=== PATIENT | male | born 2000 | race Caucasian/White ===

== ENCOUNTER 2019-11-19 22:42 | Inpatient (IN) ==
[2019-11-19] MEDS ORDERED: SODIUM CHLORIDE 0.9% 1000ML 1,000 ML IV SCH (23:00)
--- NOTE | 2019-11-19 23:15 | Emergency Department Note ---
Impression & Plan Acute upper gastrointestinal bleeding, Chest pain, Anemia, Syncope ED Provider Note NAME: MINERVA JOSUE AGE: 19 SEX: M : 2000 ARRIVES VIA: Walk-In INFORMANT: Patient, ED PROVIDER(S): Beto Brown DO CHIEF COMPLAINT: Chest pain HPI: The patient is a 19-year-old male who presented to the emergency department for an evaluation of chest pain. The patient describes epigastric and left- sided chest pain. He also has been experiencing chest pain for approximately the last few weeks. Chest pain is intermittent. It is not always worsened with exertion. The patient was at work this evening when he was going to have a [employer] movement. When he went to find more toilet paper he had a syncopal episode. Initially he presented to [facility] and was waiting for further testing but he was scheduled for a CT of the chest and left that facility and came to our facility. The patient is also been noticing black stool. The patient does have a history of upper GI bleeding in the past. He has been using NSAIDs recently. He also started taking iron recently. He denies having any abdominal pain at this time. He has had no diarrhea. Patient denies having any back pain. He does not complain of any specific difficulty breathing. The patient states his symptoms were moderate to severe earlier however now they s eem to be improved. A friend did come to the emergency department with the patient states that he was very pale and diaphoretic whenever she went to pick him up. Those symptoms have improved as well. ROS: See above HPI for pertinent positives & negatives. A total of 10 systems reviewed and were otherwise negative. PAST MEDICAL HISTORY: See Below PAST SURGICAL HISTORY: See Below FAMILY HISTORY: See Below SOCIAL HISTORY: See Below HOME MEDICATIONS: See Below ALLERGIES: See Below VITALS: See Below PHYSICAL EXAMINATION: GENERAL: Patient is awake alert in no acute distress patient is resting comfortably and showing no signs of anxiety EYES: The conjunctivae are clear. The pupils are round and reactive. EARS, NOSE, MOUTH AND THROAT: The nose is without any evidence of any deformity. Mucous membranes are moist. Tongue is midline. NECK: The neck is nontender and supple. RESPIRATORY: Normal respiratory effort is noted there is no evidence of wheezing rhonchi or rales CARDIOVASCULAR: Regular rate and rhythm noted there no murmurs rubs or gallops normal S1 normal S2. GASTROINTESTINAL: The abdomen is soft and nondistended. There is no tenderness guarding or rigidity. Rectal exam revealed black stool which was strongly heme positive. BACK: No midline tenderness or or step-off noted range of motion in flexion extension as well as rotation no signs of muscle spasm noted MUSCULOSKELETAL/EXTREMITIES: There is no evidence of gross deformity full range of motion is noted in the hips and shoulders. SKIN: There is no obvious evidence of any rash. There are no petechiae, pallor or cyanosis noted. NEUROLOGIC: Patient is awake alert and oriented x3 strength is symmetric patellar reflexes are 2+ bilaterally MEDICAL DECISION MAKING: The patient is a 19-year-old male who presented to the emergency department for an evaluation of chest pain and syncope. The patient has a history of peptic ulcer disease from NSAID use in the past. He presented to the emergency department also complaining of dark stool. Rectal exam revealed black stool which was strongly heme positive. He was treated with proton pump inhibitors and H2 blockers in the emergency department. He was also treated with IV fluids. I discussed the patient's laboratory and radiographic studies with him. He was seen at an outside facility and apparently was waiting for a CT the chest for possible pulmonary venous thromboembolic disease. I do not feel that this is the cause of the patient's symptoms at this time. I do not feel CT angiography of the chest would be warranted. Furthermore anticoagulation would be contraindicated at this time because the patient's upper GI bleeding. The Health systemist was notified about the patient. I feel the patient may require further inpatient management given his symptoms and anemia. Triage Nursing notes reviewed. Prior medical records reviewed Vital Signs: reviewed and remarkable for no significant abnormalities Differential diagnosis: Vasovagal event, dehydration, infection, hypoglycemia, electrolyte abnormalities, cardiac sources, intracerebral event, pulmonary embolism, seizu re, toxicologic, neurologic, as well as other pathologies. ER treatment provided: See below Diagnostics interpreted by me: ECG: EKG was obtained in the emergency department. My interpretation is normal sinus rhythm at 75 bpm. There is no ectopy. There is no acute ST segment abnormalities noted. There is no previous tracing for comparison. Cardiac Monitoring: An order was placed for continuous cardiac monitoring. The monitor shows a rate of 88 with sinus rhythm. Laboratory studies: As stated above and show below. Imaging studies: See below Consultation(s): 0030: [facility] hospitalist group was notified about the patient. ED COURSE: Procedures: none PDMP:reviewed and no issues Critical Care: None Past Med/Surg History Medical History Lumbar disc disease PUD (peptic ulcer disease) Social History Smoking Status: Current every day smoker Tobacco Type: Cigarettes, E-cigarettes / Vaping and Smokeless Tobacco (Dip or Chew) Hx Alcohol Use: Yes Alcohol type: beer Alcohol Intake Frequency: Monthly or Less Preferred Language: Latvian Feels Safe at Home: Yes Allergies Allergies Allergy/AdvReac Type Severity Reaction Status Date / Time No Known Allergies Allergy Unverified 11/19/19 23:25 Home Meds Home Medications Medication Instructions Recorded Confirmed No Known Home Medications 11/19/19 11/19/19 Results & Data (ED) Vital Signs Vital Signs - 24 hr 11/19/19 22:45 11/20/19 00:46 Temperature 36.7 C Temperature Source Oral Pulse Rate 95 H Pulse Rate [Finger] 66 Respiratory Rate 16 Blood Pressure 107/73 Blood Pressure [Left Arm] 106/60 Blood Pressure Mean 84 Blood Pressure Mean [Left Arm] 75 Pulse Oximetry 100 100 Oxygen Delivery Method Room Air Room Air Sepsis Recent Fever Within 48 Hours No Sepsis New/Unexplained Change in Mental Status No Sepsis Action Taken by Nursing No Action Required Home Medications Current Medication List: was personally reviewed by me Laboratory Data Attestation: I reviewed the patient's lab results. Result diagrams: 11/19/19 23:04 11/19/19 23:04 Lab Results 11/19/19 11/19/19 11/19/19 Range/Units 23:04 23:04 23:04 WBC 7.27 (4.8-10.8) K/uL RBC 4.18 L (4.7-6.1) M/uL Hgb 9.5 L (14.0-18.0) g/dL Hct 30.1 L (42-52) % MCV 72.0 L (80-100) fL MCH 22.7 L (25-34) pg MCHC 31.6 L (32-36) g/dL RDW Std Deviation 46.6 H (36.4-46.3) fL RDW Coeff of Ирина 17.7 H (11.5-14.5) % Plt Count 283 (130-400) K/uL MPV 10.6 H (7.4-10.4) fL Immature Gran % (Auto) 0.1 % Neut % (Auto) 44.5 % Lymph % (Auto) 39.3 % Carver % (Auto) 11.1 % Eos % (Auto) 4.0 % Baso % (Auto) 1.0 % Neut # (Auto) 3.23 (1.4-6.5) K/uL Lymph # (Auto) 2.86 (1.2-3.4) K/uL Carver # (Auto) 0.81 H (0.11-0.59) K/uL Eos # (Auto) 0.29 (0-0.5) K/uL Baso # (Auto) 0.07 (0-0.2) K/uL Immature Gran # (Auto) 0.01 (0.00-0.02) K/uL PT 12.4 H (9.0-12.0) Seconds INR 1.2 H (0.9-1.1) APTT 23.2 (21.0-31.0) Seconds PTT Ratio 0.8 D-Dimer 510 H* (0-500) ug/L FEU Sodium 139 (136-145) mmol/L Potassium 4.0 (3.5-5.1) mmol/L Chloride 109 H (98-107) mmol/L Carbon Dioxide 27 (21-32) mmol/L Anion Gap 3.0 (3-11) BUN 23 H (7-18) mg/dl Creatinine 0.84 (0.6-1.4) mg/dl Est Cr Clr Drug Dosing 123.8 ml/min Est GFR ( Amer) 145.1 Est GFR (Non-Af Amer) 125.2 BUN/Creatinine Ratio 27.1 H (10-20) Glucose 74 (70-99) mg/dl Calcium 8.9 (8.5-10.1) mg/dl Total Bilirubin 0.3 (0.2-1) mg/dl AST 9 L (15-37) U/L ALT 12 (12-78) U/L Alkaline Phosphatase 72 (45-117) U/L Troponin I < 0.015 (0-0.045) ng/ml Total Protein 6.9 (6.4-8.2) gm/dl Albumin 3.9 (3.4-5.0) gm/dl Globulin 3.0 (2.5-4.0) gm/dl Albumin/Globulin Ratio 1.3 (0.9-2) Lipase 59 L (73-393) U/L Blood Type Antibody Screen 11/19/19 Range/Units 23:34 WBC (4.8-10.8) K/uL RBC (4.7-6.1) M/uL Hgb (14.0-18.0) g/dL Hct (42-52) % MCV (80-100) fL MCH (25-34) pg MCHC (32-36) g/dL RDW Std Deviation (36.4-46.3) fL RDW Coeff of Ирина (11.5-14.5) % Plt Count (130-400) K/uL MPV (7.4-10.4) fL Immature Gran % (Auto) % Neut % (Auto) % Lymph % (Auto) % Carver % (Auto) % Eos % (Auto) % Baso % (Auto) % Neut # (Auto) (1.4-6.5) K/uL Lymph # (Auto) (1.2-3.4) K/uL Carver # (Auto) (0.11-0.59) K/uL Eos # (Auto) (0-0.5) K/uL Baso # (Auto) (0-0.2) K/uL Immature Gran # (Auto) (0.00-0.02) K/uL PT (9.0-12.0) Seconds INR (0.9-1.1) APTT (21.0-31.0) Seconds PTT Ratio D-Dimer (0-500) ug/L FEU Sodium (136-145) mmol/L Potassium (3.5-5.1) mmol/L Chloride (98-107) mmol/L Carbon Dioxide (21-32) mmol/L Anion Gap (3-11) BUN (7-18) mg/dl Creatinine (0.6-1.4) mg/dl Est Cr Clr Drug Dosing ml/min Est GFR ( Amer) Est GFR (Non-Af Amer) BUN/Creatinine Ratio (10-20) Glucose (70-99) mg/dl Calcium (8.5-10.1) mg/dl Total Bilirubin (0.2-1) mg/dl AST (15-37) U/L ALT (12-78) U/L Alkaline Phosphatase (45-117) U/L Troponin I (0-0.045) ng/ml Total Protein (6.4-8.2) gm/dl Albumin (3.4-5.0) gm/dl Globulin (2.5-4.0) gm/dl Albumin/Globulin Ratio (0.9-2) Lipase (73-393) U/L Blood Type O Positive Antibody Screen NEGATIVE Administered Medications Discontinued Medications Sodium Chloride (Nss 1000ml) 1,000 mls @ 999 mls/hr IV .Q1H1M ESPINOZA Stop: 11/20/19 00:00 Last Infusion: 11/20/19 00:17 Dose: 0 mls/hr Documented by: [id number] Admin: 11/19/19 23:11 Dose: 999 mls/hr Documented by: [id number] Pantoprazole Sodium 40 mg/ (Syringe) 10 mls @ 5 mls/min IV NOW ONE Stop: 11/19/19 23:21 Last Admin: 11/19/19 23:39 Dose: 5 mls/min Documented by: [id number] Famotidine (Pepcid 20mg Iv Push) 20 mg in 5 mls @ 2.5 mls/min IV NOW STA Stop: 11/19/19 23:21 Last Admin: 11/19/19 23:39 Dose: 2.5 mls/min Documented by: [id number] Imaging Data Attestation: I personally reviewed and interpreted this imaging study as follows: My Impression: Chest x-ray was obtained in the emergency department. My interpretation is no free air no acute infiltrate heart size is normal. No acute disease. Prescription Drug Monitoring [place] Drug Monitoring Program reviewed and no issues identified Blood Pressure Blood Pressure Findings: Normal blood pressure Discharge Plan Visit Data Chief Complaint: Chest Pain Stated Complaint: CHEST PAIN, R/O PE ED Provider: Beto Brown Discharge Problem: Acute upper gastrointestinal bleeding, Chest pain, Anemia, Syncope Patient Disposition: Being Evaluated by Hospitalist Condition: Good Forms Stand Alone Forms: My [facility] MyDocTime Prescriptions Prescriptions: No Action No Known Home Medications RF: 0 Referrals Referrals: PCP,NO [Primary Care Provider] - Discharge Problem: Chest pain Qualifiers: Chest pain type: unspecified Qualified Code(s): R07.9 - Chest pain, unspecified Anemia Qualifiers: Anemia type: unspecified type Qualified Code(s): D64.9 - Anemia, unspecified Syncope Qualifiers: Syncope type: unspecified Qualified Code(s): R55 - Syncope and collapse
[2019-11-19 23:17] LABS: Basophils # (auto) 0.07 K/uL (0-0.2); Eosinophils # (auto) 0.29 K/uL (0-0.5); Hematocrit (blood only) 30.1 % (42-52); Hemoglobin 9.5 g/dL (14.0-18.0); Immature Granulocytes # (auto) 0.01 K/uL (0.00-0.02); Immature Granulocytes % (auto) 0.1 %; Lymphocytes # (auto) 2.86 K/uL (1.2-3.4); Lymphocytes % (auto) 39.3 %; Mean Corpuscular Hemoglobin 22.7 pg (25-34); Mean Corpuscular Hgb Conc 31.6 g/dL (32-36); Mean Platelet Volume 10.6 fL (7.4-10.4); Monocytes # (auto) 0.81 K/uL (0.11-0.59); Monocytes % (auto) 11.1 %; Neutrophils # (auto) 3.23 K/uL (1.4-6.5); Neutrophils % (auto) 44.5 %; Platelet Count 283 K/uL (130-400); RDW Coefficient of Variation 17.7 % (11.5-14.5); RDW Standard Deviation 46.6 fL (36.4-46.3); Red Blood Count 4.18 M/uL (4.7-6.1); White Blood Count 7.27 K/uL (4.8-10.8)
[2019-11-19] MEDS ORDERED: FAMOTIDINE 20MG IV PUSH 20 MG/5 ML SYR IV STA (23:20)
[2019-11-19] MEDS ORDERED: PANTOprazole 40 MG in SYRINGE 0 ML IV ONE (23:20)
[2019-11-19 23:33] LABS: INR 1.2 (0.9-1.1); Partial Thromboplastin Ratio 0.8; Partial Thromboplastin Time 23.2 Seconds (21.0-31.0); Prothrombin Time 12.4 Seconds (9.0-12.0)
[2019-11-19 23:35] LABS: Alanine Aminotransferase 12 U/L (12-78); Albumin Level 3.9 gm/dl (3.4-5.0); Aspartate Aminotransferase 9 U/L (15-37); BUN Creatinine Ratio 27.1 (10-20); Blood Urea Nitrogen 23 mg/dl (7-18); Calcium 8.9 mg/dl (8.5-10.1); Carbon Dioxide 27 mmol/L (21-32); Chloride 109 mmol/L (98-107); Creatinine Clr Calc Pharmacy 123.8 ml/min; Est GFR (African American) 145.1; Est GFR (Non-African American) 125.2; Glucose 74 mg/dl (70-99); Lipase 59 U/L (73-393); Sodium 139 mmol/L (136-145)
[2019-11-19 23:39] LABS: Albumin Globulin Ratio 1.3 (0.9-2); Alkaline Phosphatase 72 U/L (45-117); Bilirubin,Total 0.3 mg/dl (0.2-1); Total Protein 6.9 gm/dl (6.4-8.2); Troponin I < 0.015 ng/ml (0-0.045)
[2019-11-19 23:41] LABS: D Dimer 510 ug/L FEU (0-500)
--- NOTE | 2019-11-20 01:16 | History & Physical Report ---
Date of Service November 20, 2019 Assessment & Plan (1) Acute upper gastrointestinal bleeding: Tarik Mckeon is a 19-year-old male with a past history of excess NSAID use who presents after an episode of presyncope/syncope and melena likely due to NSAID induced upper GI bleed Melena 2/2 upper GI bleed History of high NSAID use Melena x3 days Acute anemia as below GI consulted for EGD N.p.o., Protonix drip followed by IV bolus protocol Chest x-ray clear, no signs of infradiaphragmatic free air History of gastric and esophageal ulcers on prior EGD 1 year ago Acute blood loss anemia Reported baseline hemoglobin approximately 13 acutely decreased to 9.5 CBC every 6 hours Ulcer management as above Transfusion threshold of 7.0 g/dL Currently asymptomatic while in bed Syncope Patient remembers episode, felt extremely fatigued and a darkening of vision after running EKG normal sinus rhythm on admission, trop negative History not consistent with arrhythmogenic syncope Admit to med/surge with telemetry Suspect due to acute blood loss anemia D-dimer D-dimer elevated, patient with a family history of PE Patient without tachycardia or desaturation, no shortness of breath at rest Low suspicion for PE, but given d-dimer check will order bilateral Doppler lower extremity No leg asymmetry/swelling on admitting exam FEN GI: NSS +20 K@100 cc/h while n.p.o. Diet: NPO Dispo: Med Tele Code Status: Full Code (2) Chest pain: (3) Anemia: (4) Syncope: History of Present Illness . Chief Complaint: Melena, syncope Primary Care Provider: NO PCP Tarik Mckeon is a 19-year-old male with a past medical history of excessive NSAID use 1 year ago who presents with 2 to 3 days of stomach discomfort, melena, and an episode of presyncope/syncope. Edilia reports that about 3 days ago he started taking Aleve 3 tablets at a time daily for a headache. Headache improved with Aleve. 2 to 3 days ago she developed mild stomach pain and started having 6-7 sticky/tar-like black bowel movements daily. He has a decreased appetite. Denies nausea/hematemesis/emesis. Denies bright red blood per rectum. He reports that he "destroyed "his stomach 1 year ago when he had been taking 7 Aleve tablets 3 times a day for hip and muscle discomfort and had developed similar symptoms. He was found to have gastric and esophageal ulcers following this episode on his EGD. He had not used NSAIDs in the last year until 3 days ago. He reports that today while having a bowel movement he ran out of toilet paper and went to run across the house and back, and suddenly felt lightheaded and like things were "going black "and he had to sit/fall down to the floor. He reports that while he feels like things went black he did not lose consciousness and remembers the episode. He reports he felt extremely fatigued and had to wait on the floor until 3 PM before he was able to go to [facility]. He reports that they told him that he might of had a PE, but that he was waiting for over 3 hours and got frustrated so he left and went to the right aid, bought iron and a fish oil tablet which he took, and then came to [facility] for further care. He denies chest pain, chest pressure, palpitations, syncope, presyncope prior to this. He endorses shortness of breath with ambulation for the last 2 to 3 days, none prior. Denies fever, chills, cough, and cold-like symptoms. He reports he has intermittent chronic left hip and calf discomfort which improves with Aleve, but which does not limit his ability to ambulate and is not worse bearing weight. Medical history: Reviewed Medications: Reviewed. No home medications Surgical history: Reviewed Family history: Father had a PE at age 67 and an [place]. Denies other family history. Allergies: None CODE STATUS: Full code Allergies Allergy/AdvReac Type Severity Reaction Status Date / Time No Known Allergies Allergy Unverified 11/19/19 23:25 Home Medications Home Medications Medication Instructions Recorded Confirmed Type No Known Home Medications 11/19/19 11/19/19 History Past Med/Surg History Medical History Lumbar disc disease PUD (peptic ulcer disease) Family History Father Myocardial infarction Pulmonary embolism Social History Smoking Status: Current every day smoker Tobacco Type: Cigarettes, E-cigarettes / Vaping and Smokeless Tobacco (Dip or Chew) Second Hand Exposure: No; Do You Dip or Chew Tobacco: No; Tobacco Cessation Education Requested by Patient: No Hx Alcohol Use: No Hx Substance Use: No Preferred Language: Burundian Communication Ability: Effective Beliefs That Will Affect Care: None Current Living Situation: Alone Feels Safe at Home: Yes Safety Concerns: Feels Safe At This Time Review of Systems Review of Systems: Constitutional: Denies fever, chills Eyes: Denies double vision, vision change, eye pain ENT: Denies ear pain, sore throat, sinus pain Cardiovascular: Denies Chest pain, chest pressure, palpitations, extremity swelling Respiratory: See HPI Gastrointestinal: See HPI Genitourinary: Denies pain with urination Musculoskeletal: Denies weakness. Endorses chronic L hip tightness. Integumentary:Denies rash, lesions, bruising Neurological: Denies numbness, tingling, focal weakness. Headache as ntoed in HPI. Physical Exam Physical Exam: General: A&Ox3. NAD. Cooperative. HEENT: Atraumatic, normocephalic. Pupils equal and responsive to light and accommodation. No nystagmus. Tongue protrudes midline. No pallor. Mucous membranes moist. Pulm: CTAB A&P. -wheezes, -rales, -rhonchi. Symmetrical chest rise. No increase work of breathing. No respiratory distress. Cardiac: RRR, -mrg. Radial pulses intact and symmetrical. Abdominal: Tender to palpation at epigastrium and left upper quadrant. Soft. Bowel sounds present. Results & Data Results & Data ([facility]) Vital Signs (Past 12 Hours) Vital Signs Temp Pulse Pulse Resp BP BP Pulse Ox 11/20/19 00:46 66 106/60 100 11/19/19 22:45 36.7 C 95 H 16 107/73 100 Supervising Physician Co-Signing Physician Notes Attending addendum: I have physically seen this patient, have supervised the medical residents activities, and agree with the H&P unless as otherwise noted. Assessment and Plan: NSAID induced upper GI bleed/history of gastric and esophageal ulcers- NPO H&H every 6 hours Protonix bolus/drip per protocol Acute blood loss anemia- hemoglobin 9.5 upon admission. Vital signs stable. Elevated d-dimer- Family history of PE Order lower extremity venous Dopplers Patient would not be a good anticoagulation candidate with current bleeding. If Dopplers abnormal, would have to consider an IVC filter. Remaining orders and notations as noted. Resident Activity Tracking Resident Involvement: Resident Care Provided Care Provided: Adult Hospital Medicine (1) Anemia Anemia type: unspecified type Qualified Code(s): D64.9 - Anemia, unspecified (2) Syncope Syncope type: unspecified Qualified Code(s): R55 - Syncope and collapse (3) Chest pain Chest pain type: unspecified Qualified Code(s): R07.9 - Chest pain, unspecified
[2019-11-20] MEDS ORDERED: NICOTINE POLACRILEX 2 MG GUM MT PRN ×2 (01:30→15:27)
[2019-11-20 01:48] LABS: Amphetamines+Metham, Urine Neg (Neg); Barbiturates, Urine Neg (Neg); Benzodiazepine, Urine Neg (Neg); Cocaine, Urine Neg (Neg); MDMA (Ecstacy), Urine Neg (Neg); Methadone, Urine Neg (Neg); Opiate, Urine Neg (Neg); Phencyclidine, Urine Neg (Neg)
[2019-11-20] MEDS ORDERED: ACETAMINOPHEN 325 MG TAB PO PRN (02:23)
[2019-11-20] MEDS ORDERED: FAMOTIDINE 20 MG in SYRINGE 3 ML IV PRN (02:23)
[2019-11-20] MEDS ORDERED: PANTOPRAZOLE BOLUS/DRIP 1 EA IV STA (02:23)
[2019-11-20] MEDS ORDERED: PANTOprazole 80 MG in DEXTROSE 5% 100 ML IV ONE (02:30)
[2019-11-20] MEDS: NSS + 20MEQ KCL 20 MEQ/1,000 ML BAG IV SCH ×2 (03:02→12:53)
[2019-11-20] MEDS: PANTOprazole 40 MG in DEXTROSE 5% 100 ML IV SCH ×4 (04:12→18:20)
--- NOTE | 2019-11-20 06:29 | XRay Report ---
XR chest 1V portable CLINICAL HISTORY: Chest Pain pain COMPARISON STUDY: No previous studies for comparison. FINDINGS: The bones soft tissues and hemidiaphragms are normal. The cardiomediastinal silhouette is n ormal. The lungs are clear. The pulmonary vasculature is normal. IMPRESSION: Negative chest. ACT 112: Negative or not required by law. The above report was generated using voice recognition software. It may contain grammatical, syntax or spelling errors. Electronically signed by: Claus Rodriguez M.D. 11/20/2019 6:28 AM
--- NOTE | 2019-11-20 06:56 | Ultrasound Report ---
US venous doppler LE BI HISTORY: Pain. Edema. Elevated d-dimer COMPARISON STUDY: None. FINDINGS: There is normal compressibility, flow, and augmentation within the bilateral lower extremit y deep venous systems. IMPRESSION: No DVT within the right or left lower extremity. ACT 112: Negative or not required by law. The above report was generated using voice recognition software. It may contain grammatical, syntax or spelling errors. Electronically signed by: Claus Rodriguez M.D. 11/20/2019 6:55 AM
[2019-11-20 07:08] LABS: Basophils # (auto) 0.06 K/uL (0-0.2); Basophils % (auto) 1.2 %; Hematocrit (blood only) 25.3 % (42-52); Hemoglobin 7.8 g/dL (14.0-18.0); Lymphocytes # (auto) 1.95 K/uL (1.2-3.4); Lymphocytes % (auto) 38.6 %; Mean Corpuscular Hemoglobin 22.5 pg (25-34); Mean Corpuscular Hgb Conc 30.8 g/dL (32-36); Mean Corpuscular Volume 73.1 fL (80-100); Mean Platelet Volume 10.6 fL (7.4-10.4); Monocytes % (auto) 9.9 %; Neutrophils # (auto) 2.34 K/uL (1.4-6.5); Neutrophils % (auto) 46.3 %; Platelet Count 215 K/uL (130-400); RDW Coefficient of Variation 18.2 % (11.5-14.5); RDW Standard Deviation 48.4 fL (36.4-46.3); Red Blood Count 3.46 M/uL (4.7-6.1); White Blood Count 5.05 K/uL (4.8-10.8)
[2019-11-20 07:34] LABS: Microcytosis Present
[2019-11-20] MEDS: NICOTINE 14 MG/24 HR PATCH TD SCH (07:44)
[2019-11-20 08:02] LABS: BUN Creatinine Ratio 20.4 (10-20); Calcium 8.2 mg/dl (8.5-10.1); Creatinine Clr Calc Pharmacy 126.9 ml/min; Est GFR (African American) 147.2
--- NOTE | 2019-11-20 11:00 | Electrocardiogram Report ---
Test Reason : Blood Pressure : / mmHG Vent. Rate : 075 BPM Atrial Rate : 075 BPM P-R Int : 126 ms QRS Dur : 082 ms QT Int : 350 ms P-R-T Axes : -05 081 052 degrees QTc Int : 390 ms Normal sinus rhythm Normal ECG No previous ECGs available Confirmed by Ravindra Tavarez ([id number]) on 11/20/2019 11:00:17 AM Referred By: REFERRED SELF Confirmed By:Fred Tavarez
[2019-11-20] MEDS ORDERED: SODIUM CHLORIDE 0.9% 250 ML IV PRN ×2 (12:18→12:25)
--- NOTE | 2019-11-20 15:17 | Hospitalist Progress Note ---
Date of Service November 20, 2019 Assessment & Plan (1) Acute upper gastrointestinal bleeding: (1) Acute upper gastrointestinal bleeding: Tarik Mckeon is a 19-year-old male with a past history of excess NSAID use who presents after an episode of presyncope/syncope and melena likely due to NSAID induced upper GI bleed Melena 2/2 upper GI bleed History of high NSAID use Melena x3 days [employer] NPO, protonix GI planning for EGD today History of gastric and esophageal ulcers on prior EGD 1 year ago Acute blood loss anemia Reported baseline hemoglobin approximately 13 acutely decreased to 9.5 on admission with further decrease to 7.8 this AM 2 units PRBC on 11/19 Monitor H/H Syncope Patient remembers episode, felt extremely fatigued and a darkening of vision after running EKG normal sinus rhythm on admission, trop negative History not consistent with arrhythmogenic syncope Admit to med/surge with telemetry Suspect due to acute blood loss anemia (2) Elevated d-dimer: D-dimer elevated, patient with a family history of PE Patient without tachycardia or desaturation, no shortness of breath at rest Low suspicion for PE, b/l LE neg for DVT No leg asymmetry/swelling on exam (3) DVT prophylaxis: SCDs given above Admission and Anticipated Discharge Date Admission Date: November 20, 2019 Subjective Pt states no new concerns. He has not had a bowel movement since admission, but no ora bleeding noted. Pt denies fever, SOB, chest pain, abd pain, n/v/c/d, LE pain or swelling. States he did not need transfusion with GIB episode last year. Review of Systems Review of Systems: Pertinent positives and negatives reviewed in HPI--all others negative Physical Exam Constitutional: WD/WN, vitals as above Eyes: normal visual barboza by confrontation and + anicteric sclerae Neck: normal visual inspection and trachea midline Respiratory: normal respiratory effort, lungs clear to auscultation Cardiovascular: Rate/Rhythm: regular rate and regular rhythm Gastrointestinal (Abdomen): Inspection/Auscultation: abdomen not distended Percussion/Palpation: abdomen soft; abdomen nontender Musculoskeletal: Head/Neck/Chest: normocephalic and head atraumatic negative for edema, peripheral pulses intact Skin: no rashes, warm and dry Neurologic: awake; not confused Speech / Cognition: normal speech Psychiatric: A+Ox3, euthymic affect Results & Data Results & Data ([facility]) Vital Signs (Past 12 Hours) Vital Signs Temp Pulse Pulse Resp BP BP Pulse Ox 11/20/19 14:55 36.7 C 64 20 99/64 L 100 11/20/19 14:50 37.0 C 57 L 17 102/66 100 11/20/19 14:20 37.0 C 75 18 102/65 100 11/20/19 14:05 36.9 C 75 18 115/75 100 11/20/19 13:46 36.9 C 73 18 89/52 L 100 11/20/19 11:33 36.9 C 69 17 104/70 100 11/20/19 07:51 37.0 C 69 17 96/56 L 99 11/20/19 07:32 62 11/20/19 06:01 62 PG Care Time/CCT Total # of Minutes Spent Total Time Spent with Patient: Total time spent is greater than 50% in coordination of care (as documented) at patient's floor/unit and/or counseling patient: Coding Level of Care Code 16116 Subseq Hosp Care Lvl 3 Diagnoses Acute upper gastrointestinal bleeding K92.2 Elevated d-dimer R79.89 DVT prophylaxis Z29.9
--- NOTE | 2019-11-20 15:46 | Gastrointestinal Consultation ---
Date of Consultation November 20, 2019 Assessment & Plan (1) Melena: Consistent with UGI bleeding. He is on PPI currently. Plan EGD today. Procedure and risks explained which include but not limited to med reaction, bleeding, perforation, and aspiration. acute blood loss anemia--transfuse prn elevated D Dimer per hospitalist--no chest pain to induce PE. History of Present Illness Reason for Consultation: GI bleeding Attending Physician: Trang Gutierrez DO History of Present Illness CC black stools HPI Pt states about one year ago he was taking up to 7 Aleve daily and had GI bleeding diagnosed with EGD at [facility] showing esophageal and gastric ulcers. He took Aleve again up to 3 daily along with 2-3 drinks of ETOH. He notes over 2-3 days to have up to 7 black stools daily. There was mention of epi pain in the chart but he denies pain when I question him. No stools since admit. Admitting Hgb 9.5 went down to 7.8 this am. PT/PTT ok CMP ok. CXR neg and leg dopple neg for DVT. Today he had presycope. Rectal in ER reported as black and strongly heme postive. Allergies Allergy/AdvReac Type Severity Reaction Status Date / Time No Known Allergies Allergy Unverified 11/19/19 23:25 Home Medications Home Medications Medication Instructions Recorded Confirmed Type No Known Home Medications 11/19/19 11/19/19 History Patient History Medical History Lumbar disc disease PUD (peptic ulcer disease) Family History Father Myocardial infarction Pulmonary embolism Social History Smoking Status: Current every day smoker Tobacco Type: Cigarettes, E-cigarettes / Vaping and Smokeless Tobacco (Dip or Chew) Second Hand Exposure: No; Do You Dip or Chew Tobacco: No; Tobacco Cessation Education Requested by Patient: No Hx Alcohol Use: No Hx Substance Use: No Preferred Language: Nepali Communication Ability: Effective Beliefs That Will Affect Care: None Current Living Situation: Alone Feels Safe at Home: Yes Safety Concerns: Feels Safe At This Time Review of Systems Review of Systems: All systems reviewed & are unremarkable except as noted in HPI & below Physical Exam Constitutional: WD/WN, vitals as above Eyes: PERRL, conjunctivae normal, anicteric sclerae ENMT: external ear and nose normal, oropharynx normal Neck: normal visual inspection and trachea midline Respiratory: normal respiratory effort, lungs clear to auscultation Cardiovascular: RRR, no murmur, no edema Gastrointestinal (Abdomen): normal bowel sounds, soft, nontender, no hepatosplenomegaly Skin: normal turgor Neurologic: PERRL, EOMI, accommodation nl, no face palsy, no dysarthria Psychiatric: A+Ox3, euthymic affect Results & Data ([facility]) Vital Signs (Past 12 Hours) Vital Signs Temp Pulse Pulse Resp BP BP Pulse Ox 11/20/19 14:55 36.7 C 64 20 99/64 L 100 11/20/19 14:50 37.0 C 57 L 17 102/66 100 11/20/19 14:20 37.0 C 75 18 102/65 100 11/20/19 14:05 36.9 C 75 18 115/75 100 11/20/19 13:46 36.9 C 73 18 89/52 L 100 11/20/19 11:33 36.9 C 69 17 104/70 100 11/20/19 07:51 37.0 C 69 17 96/56 L 99 11/20/19 07:32 62 11/20/19 06:01 62
[2019-11-20] MEDS ORDERED: LIDOCAINE HCL 2% 2 ML VIAL/AMP(20MG/ML) INFIL ONE (17:28)
[2019-11-20] MEDS ORDERED: PROPOFOL IV EMULSION 10 MG/ML 20 ML VIAL IV ONE (17:28)
[2019-11-20] MEDS ORDERED: MIDAZOLAM HCL 1 MG/ML 2ML VIAL ONE (17:28)
--- NOTE | 2019-11-20 18:04 | Anesthesiology Consultation ---
Date of Service November 20, 2019 Assessment & Plan Chart Review Chart Review: Acceptable Risk for Surgery Consults Requested none History Surgery Operation Date: 11/20/19 16:00 Proposed Procedures p EGD Dr. Peterson Winkler Height/Weight Height: 6 ft 2 in Weight: 62.2 kg Allergies Allergy/AdvReac Type Severity Reaction Status Date / Time No Known Allergies Allergy Unverified 11/19/19 23:25 Medications Home Medications Medication Instructions Recorded Confirmed Last Taken No Known Home Medications 11/19/19 11/19/19 Unknown Active Medications Generic Name Dose Route Start Last Admin Trade Name Freq PRN Reason Stop Dose Admin Potassium Chloride/Sodium Chloride 20 meq in 1,000 mls @ 100 mls/hr 11/20/19 02:23 11/20/19 12:53 Normal Saline W/20 Meq Kcl IV 12/20/19 02:22 100 mls/hr .Q10H ESPINOZA Administration Pantoprazole Sodium 40 mg/ 100 mls @ 20 mls/hr 11/20/19 02:45 11/20/19 13:34 Dextrose IV 12/20/19 02:44 8 mg/hr Q5H ESPINOZA 20 mls/hr Administration 8 MG/HR Nicotine 14 mg 11/20/19 09:00 11/20/19 07:44 Nicoderm Cq TD 12/20/19 08:59 14 mg QAM ESPINOZA Administration NPO Date Last Intake of Fluids: 11/19/19 Time Last Intake of Fluids: 16:00 Date Last Intake of Solids: 11/19/19 Time Last Intake of Solids: 16:00 Past Medical History Medical History Lumbar disc disease PUD (peptic ulcer disease) Past Family History Family History Father Myocardial infarction Pulmonary embolism Social History Smoking Status: Current every day smoker tobacco type: cigarettes and e-cigarettes Do You Dip or Chew Tobacco: No Hx Alcohol Use: No Alcohol type: beer Hx Substance Use: No substance use type: does not use Physical Exam Vital Signs Last Vital Signs Temp 36.7 C 11/20/19 17:06 Pulse 68 11/20/19 17:06 Resp 18 11/20/19 17:06 BP 107/70 08/09/20 17:06 Pulse Ox 98 11/20/19 17:06 Testing Laboratory Results 11/20/19 06:51 11/20/19 06:51 PT 12.4 Seconds (9.0-12.0) H 11/19/19 23:04 INR 1.2 (0.9-1.1) H 11/19/19 23:04 APTT 23.2 Seconds (21.0-31.0) 11/19/19 23:04 Blood Type O Positive 11/19/19 23:34 Antibody Screen NEGATIVE 11/19/19 23:34
--- NOTE | 2019-11-20 18:05 | GI REPORT ---
Patient Name: Tarik Mckeon Procedure Date: 11/20/2019 4:20 PM Date of : 2000 Admit Type: Inpatient Age: 19 Gender: Male Attending MD: James Winkler MD Procedure: Upper GI endoscopy Providers: James Winkler MD Referring MD: Trang Gutierrez Indications: Acute post hemorrhagic anemia, Melena Medicines: Monitored Anesthesia Care Complications: No immediate complications. Estimated Blood Loss: Estimated blood loss: none. Procedure: Pre-Anesthesia Assessment: - The risks and benefits of the procedure and the sedation options and risks were discussed with the patient. All questions were answered and informed consent was obtained. - Patient identification and proposed procedure were verified prior to the procedure by the physician, the nurse and the anesthesiologist. The procedure was verified in the procedure room. After obtaining informed consent, the endoscope was passed under direct vision. Throughout the procedure, the patient's blood pressure, pulse, and oxygen saturations were monitored continuously. The Scope was introduced through the mouth, and advanced to the second part of duodenum. The upper GI endoscopy was accomplished without difficulty. The patient tolerated the procedure well. Procedure and risks explained to patient which include but not limited to medication reaction, bleeding, perforation, aspiration , and missed lesions. Judicious gas insufflation was used and gas removal done on the way out. The lumen was always visualized when advancing the scope. Prep was good. Washes and suctioning used as needed to get good visualization of the mucosa. Retroflexion to look at the fundus and cardia of the stomach and GE junction was done. Findings: o The Z-line was irregular and was found 40 cm from the incisors. A 2 cm hiatal hernia was present. Many non-bleeding cratered gastric ulcers the largest with a flat pigmented spot (Vin Class IIc) were found in the gastric antrum. The largest lesion was 30 mm in largest dimension. Biopsies of normal antrum were taken with a cold forceps for Helicobacter pylori testing. Estimated blood loss was minimal. The examined duodenum was normal. The exam was otherwise without abnormality. Impression: - Z-line irregular, 40 cm from the incisors. - 2 cm hiatal hernia. - Non-bleeding gastric ulcers with a flat pigmented spot (Vin Class IIc). Biopsied. - Normal examined duodenum. - The examination was otherwise normal. Recommendation: - [facility]. James Winkler M.D. James Winkler MD 11/20/2019 6:05:12 PM This report has been signed electronically. Note Initiated On: 11/20/2019 4:20 PM Number of Addenda: 0 I attest to the content of the Intraoperative Record and orders documented therein, exceptions below {[id number]}
--- NOTE | 2019-11-20 18:20 | Anesthesiology Progress Note ---
Date of Service November 20, 2019 Anesthesia Post Procedure Vital Signs Vital Signs: Temp Pulse Pulse Resp BP BP Pulse Ox 11/20/19 17:06 36.7 C 68 18 107/70 98 11/20/19 16:52 36.8 C 64 18 105/69 99 11/20/19 15:50 36.8 C 64 16 108/68 100 11/20/19 14:55 36.7 C 64 20 99/64 L 100 11/20/19 14:50 37.0 C 57 L 17 102/66 100 11/20/19 14:20 37.0 C 75 18 102/65 100 11/20/19 14:05 36.9 C 75 18 115/75 100 11/20/19 13:46 36.9 C 73 18 89/52 L 100 11/20/19 11:33 36.9 C 69 17 104/70 100 11/20/19 07:51 37.0 C 69 17 96/56 L 99 11/20/19 07:32 62 11/20/19 06:01 62 11/20/19 02:48 37.1 C 65 16 117/62 100 11/20/19 01:30 66 106/60 100 11/20/19 00:46 66 106/60 100 11/19/19 22:45 36.7 C 95 H 16 107/73 100 Transfer of Care Handoff Completed per policy Notes Mental Status: alert / awake / arousable and participated in evaluation Patient Amnestic to Procedure: Yes Nausea / Vomiting: adequately controlled Pain: adequately controlled Airway Patency, RR, SpO2: stable & adequate BP & HR: stable & adequate Hydration State: stable & adequate Anesthetic Complications: no major complications apparent
--- NOTE | 2019-11-20 18:20 | Post Operative Brief Note ---
Immediate Post Op Note v1 Date of Surgery November 20, 2019 Pre & Post Diagnosis Operation Date: 11/20/19 16:00 Pre-Op Diagnosis: upper GI bleed Post-Op Diagnosis: upper GI bleed, hiatal hernia, multiple gastric ulcers I identified the patient and participated in the time-out.: Yes Procedure Operation Date: 11/20/19 16:00 Actual Procedures p Esophagogastroduodenoscopy(Not Applicable) - James Winkler Surgeon James Winkler Powder Hand see note Estimated Blood Loss 5 Findings Consistent with Post-Op Diagnosis Recommned Protonix 40 mg po bid. Avoid NSAIDs and ASA. Await pathology. Repeat EGD 8 weeks as outpt to document healing of ulcers. Solid diet tonight. Possible DC tomorrow depending on clinical course.
[2019-11-20] MEDS: PANTOprazole 40 MG TAB PO SCH (20:27)
--- NOTE | 2019-11-21 01:58 | Billing Data ---
Date of Service November 21, 2019 Coding Level of Care Code 61119 Initial Inpt Care Lvl 3
[2019-11-21 07:41] LABS: Basophils # (auto) 0.05 K/uL (0-0.2); Eosinophils # (auto) 0.25 K/uL (0-0.5); Hematocrit (blood only) 31.9 % (42-52); Hemoglobin 10.2 g/dL (14.0-18.0); Lymphocytes # (auto) 1.52 K/uL (1.2-3.4); Lymphocytes % (auto) 30.3 %; Mean Corpuscular Hemoglobin 24.3 pg (25-34); Mean Platelet Volume 10.8 fL (7.4-10.4); Monocytes # (auto) 0.56 K/uL (0.11-0.59); Monocytes % (auto) 11.2 %; Neutrophils # (auto) 2.64 K/uL (1.4-6.5); Neutrophils % (auto) 52.5 %; Platelet Count 212 K/uL (130-400); RDW Coefficient of Variation 18.3 % (11.5-14.5); RDW Standard Deviation 51.6 fL (36.4-46.3); White Blood Count 5.02 K/uL (4.8-10.8)
[2019-11-21 08:11] LABS: Albumin Level 3.3 gm/dl (3.4-5.0); BUN Creatinine Ratio 13.5 (10-20); Calcium 8.8 mg/dl (8.5-10.1); Creatinine Clr Calc Pharmacy 105.2 ml/min; Est GFR (African American) 127.2; Est GFR (Non-African American) 109.8
--- NOTE | 2019-11-21 08:13 | Anesthesiology Progress Note ---
Date of Service November 21, 2019 Anesthesia Post Procedure Vital Signs Vital Signs: Temp Pulse Pulse Resp BP BP BP 11/21/19 07:45 62 11/21/19 07:17 36.6 C 62 16 94/55 L 11/21/19 04:16 65 11/21/19 03:10 36.7 C 76 14 92/53 L 11/20/19 23:16 36.8 C 78 14 114/66 11/20/19 20:09 36.7 C 65 15 98/61 L 11/20/19 18:54 72 11/20/19 17:54 36.8 C 73 16 116/68 11/20/19 17:24 36.9 C 59 L 18 120/71 11/20/19 17:09 36.7 C 68 18 107/70 11/20/19 17:06 36.7 C 68 18 107/70 11/20/19 16:52 36.8 C 64 18 105/69 11/20/19 15:50 36.8 C 64 16 108/68 11/20/19 14:55 36.7 C 64 20 99/64 L 11/20/19 14:50 37.0 C 57 L 17 102/66 11/20/19 14:20 37.0 C 75 18 102/65 11/20/19 14:05 36.9 C 75 18 115/75 11/20/19 13:46 36.9 C 73 18 89/52 L 11/20/19 11:33 36.9 C 69 17 104/70 Pulse Ox 11/21/19 07:45 11/21/19 07:17 98 11/21/19 04:16 11/21/19 03:10 97 11/20/19 23:16 98 11/20/19 20:09 100 11/20/19 18:54 11/20/19 17:54 100 11/20/19 17:24 98 11/20/19 17:09 98 11/20/19 17:06 98 11/20/19 16:52 99 11/20/19 15:50 100 11/20/19 14:55 100 11/20/19 14:50 100 11/20/19 14:20 100 11/20/19 14:05 100 11/20/19 13:46 100 11/20/19 11:33 100 Notes Mental Status: alert / awake / arousable and participated in evaluation Patient Amnestic to Procedure: Yes Nausea / Vomiting: adequately controlled Pain: adequately controlled Airway Patency, RR, SpO2: stable & adequate BP & HR: stable & adequate Hydration State: stable & adequate Anesthetic Complications: no major complications apparent and Pt Satisfied with anesthetic care
[2019-11-21 08:14] LABS: Albumin Globulin Ratio 1.3 (0.9-2); Bilirubin,Total 0.3 mg/dl (0.2-1); Globulin 2.6 gm/dl (2.5-4.0); Total Protein 5.9 gm/dl (6.4-8.2)
[2019-11-21] MEDS: NICOTINE 14 MG/24 HR PATCH TD SCH (09:07)
[2019-11-21] MEDS: PANTOprazole 40 MG TAB PO SCH (09:07)
--- NOTE | 2019-11-21 09:13 | Gastroenterology Progress Note ---
Date of Service November 21, 2019 Assessment & Plan (1) Melena: No further report of melena (2) Anemia: Received 2 units PRBC. Hgb 10.2, Hct 31.9 this morning. (3) Acute upper gastrointestinal bleeding: EGD on 11/20/[address] Winkler demonstrated a 2cm hiatal hernia and non- bleeding gastric ulcers. Patient will require repeat EGD in a few months to reevaluate gastric ulcer. Avoid use of NSAIDS. Continue PPI. Follow-up in GI clinic. Admission and Anticipated Discharge Date Admission Date: November 20, 2019 Subjective The patient is a 19 year old male that presented to the ED with chief complaint of melena. Reports about one year ago he was taking up to 7 Aleve daily and had GI bleeding diagnosed with EGD at [facility] showing esophageal and gastric ulcers. He took Aleve again up to 3 daily along with 2-3 drinks of ETOH. Noted over 2-3 days to have up to 7 black stools daily. Admitting Hgb 9.5. Rectal in ER reported as black and strongly heme positive. Hgb 7.6 11/20/2019. Received 2 units PRBC. Hgb 10.2, Hct 31.9 this morning. EGD on 11/20/[address] Winkler demonstrated a 2cm hiatal hernia and non-bleeding gastric ulcers with flat pigmented spot (Vin Class IIc) - biopsied. Otherwise normal. On exam/interview today, reports he is feeling significantly improved. He reports no further melena noted with bowel movement. Denies nausea, vomiting, diarrhea, abdominal pain. Requesting to go home. Has breakfast tray and denies difficulty eating and reports appetite is good. Review of Systems Review of Systems: All systems reviewed & are unremarkable except as noted in HPI & below Physical Exam Constitutional: WD/WN, vitals as above Eyes: PERRL, conjunctivae normal, anicteric sclerae ENMT: external ear and nose normal, oropharynx normal Neck: normal visual inspection and trachea midline Respiratory: normal respiratory effort, lungs clear to auscultation Cardiovascular: RRR, no murmur, no edema Gastrointestinal (Abdomen): normal bowel sounds, soft, nontender, no hepatosplenomegaly Skin: normal turgor Neurologic: PERRL, EOMI, accommodation nl, no face palsy, no dysarthria Psychiatric: A+Ox3, euthymic affect Results & Data ([facility]) Vital Signs (Past 12 Hours) Laboratory Results - last 24 hr 11/19/19 11/20/19 11/21/19 23:34 06:51 07:26 WBC 5.02 RBC 4.20 L Hgb 10.2 L Hct 31.9 L MCV 76.0 L MCH 24.3 L MCHC 32.0 RDW Std Deviation 51.6 H RDW Coeff of Ирина 18.3 H Plt Count 212 MPV 10.8 H Immature Gran % (Auto) 0.0 Neut % (Auto) 52.5 Lymph % (Auto) 30.3 [place] % (Auto) 11.2 Eos % (Auto) 5.0 Baso % (Auto) 1.0 Neut # (Auto) 2.64 Lymph # (Auto) 1.52 [place] # (Auto) 0.56 Eos # (Auto) 0.25 Baso # (Auto) 0.05 Immature Gran # (Auto) 0.00 Sodium Potassium Chloride Carbon Dioxide Anion Gap BUN Creatinine Est Cr Clr Drug Dosing Est GFR ( Amer) Est GFR (Non-Af Amer) BUN/Creatinine Ratio Glucose Calcium Total Bilirubin AST ALT Alkaline Phosphatase Total Protein Albumin Globulin Albumin/Globulin Ratio Blood Type O Positive Blood Type Recheck O Positive Antibody Screen NEGATIVE Crossmatch See Detail 11/21/19 07:26 WBC RBC Hgb Hct MCV MCH MCHC RDW Std Deviation RDW Coeff of Ирина Plt Count MPV Immature Gran % (Auto) Neut % (Auto) Lymph % (Auto) [place] % (Auto) Eos % (Auto) Baso % (Auto) Neut # (Auto) Lymph # (Auto) [place] # (Auto) Eos # (Auto) Baso # (Auto) Immature Gran # (Auto) Sodium 144 Potassium 4.0 Chloride 110 H Carbon Dioxide 28 Anion Gap 6.0 BUN 13 Creatinine 0.98 Est Cr Clr Drug Dosing 105.2 Est GFR ( Amer) 127.2 Est GFR (Non-Af Amer) 109.8 BUN/Creatinine Ratio 13.5 Glucose 92 Calcium 8.8 Total Bilirubin 0.3 AST 10 L ALT 12 Alkaline Phosphatase 68 Total Protein 5.9 L Albumin 3.3 L Globulin 2.6 Albumin/Globulin Ratio 1.3 Blood Type Blood Type Recheck Antibody Screen Crossmatch Vital Signs Temp Pulse Pulse Resp BP BP Pulse Ox 11/21/19 07:45 62 11/21/19 07:17 36.6 C 62 16 94/55 L 98 11/21/19 04:16 65 11/21/19 03:10 36.7 C 76 14 92/53 L 97 11/20/19 23:16 36.8 C 78 14 114/66 98 (1) Anemia Anemia type: unspecified type Qualified Code(s): D64.9 - Anemia, unspecified
--- NOTE | 2019-11-21 09:46 | Discharge Summary ---
Date of Service November 21, 2019 Admission HPI Per Admitting Provider Tarik Mckeon is a 19-year-old male with a past medical history of excessive NSAID use 1 year ago who presents with 2 to 3 days of stomach discomfort, melena, and an episode of presyncope/syncope. Edilia reports that about 3 days ago he started taking Aleve 3 tablets at a time daily for a headache. Headache improved with Aleve. 2 to 3 days ago she developed mild stomach pain and started having 6-7 sticky/tar-like black bowel movements daily. He has a decreased appetite. Denies nausea/hematemesis/emesis. Denies bright red blood per rectum. He reports that he "destroyed "his stomach 1 year ago when he had been taking 7 Aleve tablets 3 times a day for hip and muscle discomfort and had developed similar symptoms. He was found to have gastric and esophageal ulcers following this episode on his EGD. He had not used NSAIDs in the last year until 3 days ago. He reports that today while having a bowel movement he ran out of toilet paper and went to run across the house and back, and suddenly felt lightheaded and like things were "going black "and he had to sit/fall down to the floor. He reports that while he feels like things went black he did not lose consciousness and remembers the episode. He reports he felt extremely fatigued and had to wait on the floor until 3 PM before he was able to go to [facility]. He reports that they told him that he might of had a PE, but that he was waiting for over 3 hours and got frustrated so he left and went to the right aid, bought iron and a fish oil tablet which he took, and then came to [facility] for further care. He denies chest pain, chest pressure, palpitations, syncope, presyncope prior to this. He endorses shortness of breath with ambulation for the last 2 to 3 days, none prior. Denies fever, chills, cough, and cold-like symptoms. He reports he has intermittent chronic left hip and calf discomfort which improves with Aleve, but which does not limit his ability to ambulate and is not worse bearing weight. Medical history: Reviewed Medications: Reviewed. No home medications Surgical history: Reviewed Family history: Father had a PE at age 67 [address] Denies other family history. Allergies: None CODE STATUS: Full code Principal Diagnosis Pt states he feels great and would like to go home. No issues s/p EGD. He has been eating without issue. No further melena. No abd pain, n/v. No further syncope. Pt denies fever, SOB, chest pain, c/d, LE pain or swelling. Discharge Exam Constitutional WD/WN, vitals as above Eyes normal visual barboza by confrontation and + anicteric sclerae Neck normal visual inspection and trachea midline Respiratory normal respiratory effort, lungs clear to auscultation Cardiovascular Rate/Rhythm: regular rate and regular rhythm Gastrointestinal (Abdomen) Inspection/Auscultation: abdomen not distended Percussion/Palpation: abdomen soft; abdomen nontender Musculoskeletal Head/Neck/Chest: normocephalic and head atraumatic Skin no rashes, warm and dry Neurologic awake; not confused Speech / Cognition: normal speech Psychiatric A+Ox3, euthymic affect Discharge Data Allergies Allergy/AdvReac Type Severity Reaction Status Date / Time No Known Allergies Allergy Unverified 11/19/19 23:25 Consultations 11/20/19 00:13 ED Decision to Admit Stat 11/20/19 02:23 Consult Gastroenterology Routine Procedures Performed Operation Date: 11/20/19 16:00 Actual Procedures p Esophagogastroduodenoscopy(Not Applicable) - James Winkler Ordered Studies 11/20/19 01:16 US venous doppler [facility] Urgent Hospital Course (1) Acute upper gastrointestinal bleeding: (1) Acute upper gastrointestinal bleeding: Tarik Mckeon is a 19-year-old male with a past history of excess NSAID use who presents after an episode of presyncope/syncope and melena likely due to NSAID induced upper GI bleed Melena 2/2 upper GI bleed History of high NSAID use with hx of GIB for same cause in the past 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, protonix during admission History of gastric and esophageal ulcers on prior EGD 1 year ago EGD noted for nonbleeding ulcers Recs for BID protonix x30 days, then decrease to QD x2 weeks, then off Pt [place] out of the area, but advised that he can f/u with GI here vs his home region Advised that protonix should not be a life long medication Advised that chewing tobacco can cause reflux Acute blood loss anemia Reported baseline hemoglobin approximately 13 acutely decreased to 9.5 on admission with further decrease to 7.8 this AM 2 units PRBC on 11/19 Hb to 10.2 today Syncope Patient remembers episode, felt extremely fatigued and a darkening of vision after running EKG normal sinus rhythm on admission, trop negative History not consistent with arrhythmogenic syncope Admit to med/surge with telemetry Suspect due to acute blood loss anemia (2) Chest pain: (3) Anemia: (4) Syncope: Total Time Total Time Spent Total Time Spent (In Minutes): >30 Total Time Includes: Examination of the Patient, Discharge Planning, Medication Reconciliation, Communication With Other Providers and Other Discharge Plan Discharge Items Patient Disposition: Home - Self-Care Reason For Visit: UGIB, SYNCOPE Discharge Diagnosis: Upper GI bleed Condition on Discharge: Good Activity: Resume your previous activity Non-emergency contact: Primary Care Provider and Data Warehousing Engineer Call non-emergency contact if: you have any medication questions and your symptoms worsen Follow-up/Referrals: James Winkler [Physician] - (1 month) PCP,NO [Primary Care Provider] - Diet: Regular Addtl Attending Provider Instructions: You should avoid spicy, greasy, fatty, or fried foods for the next week to allow your stomach time to heal. You should also avoid acidic foods like citrus, tomatoes, soda, coffee as this could also irritate the lining of your stomach. You should avoid Aleve and other NSAIDs (tylenol, ibuprofen, aspirin, etc) as this is the second time you have had a bleeding issue after using them. If you are unsure if a medication falls into this category, you should ask the pharmacist prior to purchase. If you have to take one of these medications for some reason, you should eat prior to taking it and use it sparingly. A good alternative to NSAIDs for headaches or other muscle pain is Bronx 3 fish oil. It will not cause irritation to the lining of your stomach like NSAIDs, but works on the same pathway that can help with pain. You would take 2500-3000mg of [place] 3 to be effective (check the ingredient label to know how many mg of omega 3 a product has as it varies greatly between brands). You will take the omeprazole twice a day for the next month. You should gradually taper off of this. If you stop taking it "cold turkey", it can cause rebound heartburn or reflux. After you finish 1 month of twice a day treatment, you should taper down to once a day for 2 weeks. Then move to every other day for two weeks. Then stop use. If you have issues with rebound reflux, you can use marshmallow root extract (available at [employer] or [employer]). You would take this daily and can gradually taper off of the marshmallow root extract the same way you would taper off of the omeprazole. As we discussed, chewing tobacco can cause reflux and for this and many other reasons, you should try to decrease your use and quit altogether if possible. Pending Studies at Discharge: Yes Studies:: EGD biopsy Stand-Alone Forms: My [facility], Smoking Cessation Medications and DC Order Prescriptions: New pantoprazole 40 mg Tablet,Delayed Release (Dr/Ec) 40 mg PO BID Qty: 60 RF: 1 No Action No Known Home Medications RF: 0 Discharge Orders: Discharge Order (Routine); Ordered 11/21/19 Ordered By: Trang Gutierrez Admission Data Admit Date/Time: 11/20/19 01:00 Attending Provider: Trang Gutierrez Admit Provider: Blair Wyatt Primary Care Provider: PCP,NO Other Providers: Blas Benitez Brian D. Other Interventions: Discharge Summary Assessment (RN) Last Done: 11/21/19 09:48 DC Date/Time DO NOT enter until pt leaves facility: 11/21/19 11:00 Coding Level of Care Code D/C Day Management >30 mins Diagnoses Acute upper gastrointestinal bleeding K92.2 Chest pain R07.9 Chest pain type: unspecified Anemia D64.9 Anemia type: unspecified type Syncope R55 Syncope type: unspecified
--- NOTE | 2019-11-29 13:42 | Coding Query ---
CODING QUERY To promote full compliance with coding requirements relating to patient care, provider participation is requested in all cases of custom van converter uncertainty. Please assist us with the question(s) below: Coding Question(s): Patient presented with acute blood loss anemia. EGD revealed esophagus and stomach ulcers. Discharge summary states acute GI bleed. Please document, if known or suspected, the source of the UGI bleed. Thanks for your help! Jonatan Sorto [facility] Physician's Response(s): As noted in d/c summary, pt with ulcers, nonbleeding (at time of EGD) Thank you Jonatan Sorto Principal Diagnosis: "that condition established after study, to be chiefly responsible for occasioning the admission of the patient to the hospital for care." Co-Existing Principal Diagnosis: "when two or more diagnoses equally meet the criteria for principal diagnosis as determined by the circumstances of admission, diagnostic work up, and/or therapy provided, and the Alphabetic Index, Tabular List, or another coding guideline does not provide sequencing direction, any one of the diagnoses may be sequenced first." "When the physician has documented what appears to be a current diagnosis in the body of the record, but has not included the diagnosis in the final diagnostic statement, the physician should be asked whether the diagnosis should be added." (Source Coding Clinic 2 QTR90. p3-4) [facility]
== END 2019-11-21 11:00 | disposition home or self-care (01) | DRG 378 ==
LOC: ED 22:42 → SUATTDRO 11-20 01:00 → 2N 11-20 01:00